=== PATIENT | female | born 1940 ===

== ENCOUNTER 2021-05-20 10:20 | Outpatient (CLI) | payer MEDICARE | END 2021-05-20 10:21 | disposition home or self-care (01) | LOC: ULT 10:20 | PROVIDERS: ATTEND Internal Medicine | DX: Z12.11 Encounter for screening for malignant neoplasm of colon (principal); R79.89 Other specified abnormal findings of blood chemistry; I70.0 Atherosclerosis of aorta; I77.811 Abdominal aortic ectasia | CPT/HCPCS: 76700 ==